=== PATIENT | male | born 1990 | race Caucasian/White ===

== ENCOUNTER 2016-10-05 08:55 | Emergency (ER) | payer OTHER ==
[~2016-10-05] VITALS: Wt 72.7 kg
--- NOTE | 2016-10-05 09:29 | ERD ---
ER Documentation Chief Complaint Date/Time DATE: 10/05/16 TIME: 09:26 Chief Complaint gen'l abd pain w nausea, diarrhea, cough, fever HPI Patient is a 26-year-old male who presents to the ED with generalized abdominal pain on and off for the last year, an episode of diarrhea, nonblack non-tarry and a cough. He denies fever or chills. Denies specific area of the abdominal pain. Denies leg pain or swelling. Denies shortness of breath or difficulty breathing. Denies headache or dizziness. He states that he has had a productive cough for the last year and would like to get checked. He also states that his abdominal pain has been going on for the last year and states that it could be related to lactose. He states that he develops diarrhea occasionally with milk or dairy products. Denies dysuria or back pain. No other complaints. ROS All systems reviewed and are negative except as per history of present illness. Medications Home Meds Active Scripts Clotrimazole* (Clotrimazole* AF) 1% - 30 Gm Cream.gm., 1 APPLIC TOP BID for 7 Days, TUB Prov:CHESTER DANIELS PA-C 10/05/16 Azithromycin* (Zithromax*) 250 Mg Tablet, 250 MG PO .ZPACK DIRECTED, #6 TAB TAKE 500 MG (2 TABS) THE FIRST DAY THEN 250 MG (1 TAB) DAYS 2-5 Prov:CHESTER DANIELS PA-C 10/05/16 PMhx/Soc Medical and Surgical Hx: pt denies Medical Hx, pt denies Surgical Hx Hx Alcohol Use: No Hx Substance Use: No Smoking Status: Never smoker Physical Exam Vitals Vital Signs Date Time Temp Pulse Resp B/P Pulse Ox O2 Delivery O2 Flow Rate FiO2 10/05/16 08:59 97.8 66 20 135/81 98 Physical Exam GENERAL: Well-developed, well-nourished MALE. Appears in no acute distress. HEAD: Normocephalic, atraumatic. EYES: Pupils are equally reactive bilaterally. EOMs grossly intact. No conjunctival erythema. ENT: Moist mucous membranes. No uvula deviation. No kissing tonsils. No exudates. NECK: Supple. No lymphadenopathy or thyromegaly. No meningismus. negative kernig. negative brudinski. LUNG: Clear to auscultation bilaterally. No rhonchi, wheezing, rales or coarse breath sounds. HEART: Regular rate and rhythm. No murmurs, rubs or gallops. ABDOMEN: No scars, ecchymosis or rashes noted. Soft, nontender, and nondistended. Positive bowel sounds in all four quadrants. No rebound tenderness , no guarding. (-) McBurneys point tenderness. No CVA tenderness. No focal tenderness. BACK: No midline tenderness. Extremities: Equal pulses bilaterally. No peripheral clubbing, cyanosis or edema. No unilateral leg swelling. Erythematous dry rash on arm. No drainage. NEUROLOGIC: Alert and oriented. Moving all four extremities. 5/5 strength in all extremities. Normal speech. Steady gait. SKIN: Normal color. Warm and dry. No rashes or lesions. Capillary refill < 2 seconds Procedures/MDM ER COURSE: I kept the patient and/or family informed of laboratory and diagnostic imaging results throughout the emergency room course. IMAGING STUDIES [place] [id number] Radiology Main Line: [phone] DIAGNOSTIC IMAGING REPORT Patient: SHANTAL DELGADILLO : 1990 Age: 26 Sex: M MR #: [id number] DOS: 10/05/16 0923 Ordering MD: CHESTER DANIELS PA-C Location: [facility] Room/Bed: PROCEDURE: Chest x-ray CLINICAL INDICATION: cough. TECHNIQUE: One-view frontal. COMPARISON: None available FINDINGS: The cardiac silhouette is normal. Hazy density overlying the medial right lower lung zone is noted. Mild infiltrate/atelectasis is not excluded. No left infiltrates are noted. No pneumothorax is noted. No hilar abnormalities are noted. IMPRESSION: 1. Hazy increased density overlying the medial right lower lung zone. Mild infiltrate/atelectasis is not excluded. RPTAT: HGSG .Derek White MD, MD Date Time Electronically viewed and signed by .Derek White MD, on 10/05/2016 09: 56 .G/ CC: CHESTER DANIELS PA-C MEDICAL DECISION MAKING: This is a 26-year-old male who presents with cough 1 year and abdominal pain on and off 1 year. Vital signs were reviewed. Patient is afebrile. Patient is not hypoxic. Patient is not toxic or ill-appearing. Patient likely has abdominal pain of unknown etiology likely related to lactose. Low suspicion for pneumonia, PE, pneumothorax, ACS, epiglottitis, obstruction, TB, pertussis, meningitis, sepsis. Low suspicion for ACS, AAA, perforated ulcer, bowel obstruction, cholecystitis, choledocholithiasis, cholangitis, pancreatitis, hepatic abscess, appendicitis, diverticulitis, gastroenteritis, hepatitis, peptic ulcer disease, HELLP syndrome. Advised patient that he should follow-up with a GI specialist. Advised patient to have a 12-24 hour recheck if symptoms worsen. I will be treating the patient was azithromycin as his imaging study was suspicious of infiltrate. Low suspicion for pneumonia, PE, pneumothorax, ACS, epiglottitis, obstruction, TB, pertussis, meningitis, sepsis. DISCHARGE: At this time, patient is stable for discharge and outpatient management with no new complaints during the ER course. Patient was sent home with instructions to follow a BRAT diet, to eliminate lactose, a note for work and a list of GI doctor, clotrimazole for rash and azithromycin. Patient will be discharged home with instructions to recheck for new or worsening symptoms such as fever, nausea, weakness, LOC and to follow up with primary care in the next 1-2 days. Patient was advised to return to the ER for any new or worsening symptoms. Plan was discussed and patient and/or family understands and agrees. Home instructions were given. Departure Diagnosis: Primary Impression: Abdominal pain Abdominal location: generalized Qualified Code: R10.84 - Generalized abdominal pain Condition: Stable CHESTER DANIELS PA-C Oct 05, 2016 09:29
--- NOTE | 2016-10-05 09:56 | RADRPT ---
PROCEDURE: Chest x-ray CLINICAL INDICATION: cough. TECHNIQUE: One-view frontal. COMPARISON: None available FINDINGS: The cardiac silhouette is normal. Hazy density overlying the medial right lower lung zone is noted. Mild infiltrate/atelectasis is no t excluded. No left infiltrates are noted. No pneumothorax is noted. No hilar abnormalities are noted. IMPRESSION: 1. Hazy increased density overlying the medial right lower lung zone. Mild infiltrate/atelectasis is not excluded. RPTAT: HGSG .Derek White MD, MD Date Time Electronically viewed and signed by .Derek White MD, on 10/05/2016 09:56 .G/
[2016-10-05] MEDS ORDERED: AZIT250T94 PO (10:08)
[2016-10-05] MEDS ORDERED: CLOT30CR24 TOP (10:09)
== END 2016-10-05 10:19 | disposition home or self-care (01) ==
LOC: FTE 08:55
DX: R10.84 Generalized abdominal pain (principal)
CPT/HCPCS: 71010; Z7502